=== PATIENT | male | born 1990 | race Caucasian/White ===

== ENCOUNTER 2018-09-29 15:19 | Day surgery (SDC) | payer OTHER ==
[~2018-09-29] VITALS: Ht 172.7 cm; Wt 69.2 kg
[2018-09-29] VITALS (16 sets, daily range): BP systolic 118–144; BP diastolic 67–78; PULSE 62–108; RESP 13–22; Ht 172.7 cm; Wt 69.2 kg
--- NOTE | 2018-09-29 17:06 | HPN ---
Date/Time of Note Date/Time of Note DATE: 09/29/18 TIME: 17:06 Interval H&P Admission Note Pt. seen H&P reviewed: No system changes TY YOUSIF Sep 29, 2018 17:06
[2018-09-29] MEDS ORDERED: BUPIVACAINE 0.25% (MPF) 30 ML INJ ONE (17:21)
[2018-09-29] MEDS ORDERED: MIDAZOLAM 1 MG/ML 2 ML INJ ONE (17:21)
[2018-09-29] MEDS ORDERED: BUPIVACAINE 0.5% (SDV) 30 ML INJ ONE (17:24)
[2018-09-29] MEDS ORDERED: SEVOFLURANE 15 MIN ONE (17:24)
[2018-09-29] MEDS ORDERED: ROCURONIUM 50 MG INJ ONE ×2 (17:24→17:47)
[2018-09-29] MEDS ORDERED: GLYCOPYRROLATE 0.4 MG INJ ONE ×2 (17:24→18:53)
[2018-09-29] MEDS ORDERED: LIDOCAINE 2% (SDV) 5 ML INJ ONE (17:24)
--- NOTE | 2018-09-29 17:28 | PREAC ---
Date/Time of Note Date/Time of Note DATE: 09/29/18 TIME: 17:27 Anesthesia Eval and Record Evaluation Time Pre-Procedure Interview DATE: 09/29/18 TIME: 17:27 Age 28 Sex male NPO: 8 hrs Preoperative diagnosis left radial fracture Planned procedure orif left distal radial fracture Past Medical History Past Medical History: None Surgery & Anesthesia Issues No known issue Meds Anticoagulation: No Beta Nancy within 24 hr: No Reason Beta Nancy not given: Pt. not on B-Nancy Meds reviewed: Yes Allergies Coded Allergies: No Known Allergy (Unverified , 09/29/18) Allergies Reviewed: Yes Labs/Studies Labs Reviewed: Reviewed by anesthesiologist test: N/A Pre-procedure Exam Last vitals Vital Signs Date Temp Pulse Resp B/P (MAP) Pulse Ox O2 O2 Flow FiO2 Time Delivery Rate 09/29/18 98.9 83 16 123/77 100 Room Air 16:39 (92) Airway: Adequate mouth opening, Adequate thyromental dist Mallampati: Mallampati II Teeth: Normal Lung: Normal Heart: Normal ASA Physical Status ASA physical status: 1 Emergency: None Planned Anesthetic General/MAC: LMA Nerve block: Brachial plexus (left) Planned Pain Management Single shot nerve block, Parenteral pain med Pre-operative Attestations Prior to commencing anesthesia and surgery, the patient was re-evaluated, there was verification of: *The patient's identity *The results of appropriate recent lab work and preoperative vital signs *The above evaluation not changing prior to induction *Anesthetic plan, risk benefits, alternative and complications discussed with patient/family; questions answered; patient/family understands, accepts and wishes to proceed. NEVA VENEGAS Sep 29, 2018 17:28
[2018-09-29] MEDS ORDERED: PROPOFOL 20 ML ONE (17:47)
[2018-09-29] MEDS ORDERED: ONDANSETRON 4 MG INJ ONE (18:43)
[2018-09-29] MEDS ORDERED: DEXAMETHASONE 4 MG/ML 5 ML INJ ONE (18:43)
[2018-09-29] MEDS ORDERED: NEOSTIGMINE 10 MG INJ ONE (18:53)
--- NOTE | 2018-09-29 19:06 | OPPN ---
Date/Time of Note Date/Time of Note DATE: 09/29/18 TIME: 19:04 Operative Report Preoperative Diagnosis left distal radius fracture intra-articular, three fragments left carpal tunnel syndrome Postoperative Diagnosis left distal radius fracture intra-articular, three fragments left carpal tunnel syndrome Operation/Procedure Performed left distal radius fracture intra-articular, three fragments ORIF left carpal tunnel release Surgeon see signature line assistant product manager none Anesthesia: general Estimated blood loss: 0 - 10 ml's Transfusion Required none Specimen none Grafts/Implants none Complications none TY YOUSIF Sep 29, 2018 19:06
--- NOTE | 2018-09-29 19:08 | PAC ---
Date/Time of Note Date/Time of Note DATE: 09/29/18 TIME: 19:07 Post-Anesthesia Notes Post-Anesthesia Note Last documented vital signs Vital Signs Date Temp Pulse Resp B/P (MAP) Pulse Ox O2 O2 Flow FiO2 Time Delivery Rate 09/29/18 98.9 83 16 123/77 100 Room Air 1907 (92) Activity: WNL Respiratory function: WNL Cardiovascular function: WNL Mental status: Baseline Pain reasonably controlled: Yes Hydration appropriate: Yes Nausea/Vomiting absent: Yes NEVA VENEGAS Sep 29, 2018 19:07
[2018-09-29] MEDS ORDERED: KETOROLAC 30 MG INJ IV PRN (19:30)
[2018-09-29] MEDS ORDERED: ONDANSETRON 4 MG INJ IV PRN (19:30)
[2018-09-29] MEDS ORDERED: OXYCODONE/ACETAMINOPHEN (5/325) TAB PO PRN ×2 (19:30)
[2018-09-29] MEDS ORDERED: FENTAnyl 50 MCG/ML VIAL IV PRN ×3 (19:30)
[2018-09-29] MEDS ORDERED: MIDAZOLAM 1 MG/ML 2 ML INJ IV PRN (19:30)
[2018-09-29] MEDS ORDERED: LABETALOL HCL 20MG INJ IV PRN (19:30)
[2018-09-29] MEDS ORDERED: METOCLOPRAMIDE 10 MG INJ IV PRN (19:30)
[2018-09-29] MEDS ORDERED: hydrALAzine 20 MG INJ IV PRN (19:30)
[2018-09-29] MEDS ORDERED: HYDROmorphONE 1 MG/5 ML IV SYRINGE IV PRN ×3 (19:30)
[2018-09-29] MEDS ORDERED: ALBUTEROL 0.083% (NEB) 2.5 MG/3 ML AMP HHN PRN (19:30)
[2018-09-29] MEDS ORDERED: DIPHENHYDRAMINE 50 MG INJ IV PRN (19:30)
[2018-09-29] MEDS ORDERED: MEPERIDINE 25 MG INJ IV PRN (19:30)
[2018-09-29] MEDS ORDERED: EPHEDrine SULFATE 50 MG/5 ML SYG IV PRN (19:30)
--- NOTE | 2018-09-29 19:40 | OPR ---
DATE OF OPERATION: 09/29/2018 SURGEON: Hernandez Davies MD ANESTHESIA: Peripheral nerve block plus general. PREOPERATIVE DIAGNOSES: 1. Left distal radius fracture, intraarticular, 3 or more fragments. 2. Left carpal tunnel syndrome. POSTOPERATIVE DIAGNOSES: 1. Left distal radius fracture, intraarticular, 3 or more fragments. 2. Left carpal tunnel syndrome. PROCEDURE: 1. Open reduction internal fixation, left distal radius fracture, intraarticular, 3 or more fragment s. 2. Left carpal tunnel release, open. OPERATIVE FINDINGS: A displaced fracture malunion left distal radius with intra-articular extension with swelling of the carpal canal. There was swelling at the carpal canal. INDICATION FOR PROCEDURE: This is a 28-year-old male with injury to left wrist who was seen in [facility] and diagnosed with a displaced distal radius fracture. Discussed the options and the patient elect ed to proceed with surgical intervention, understanding risks and benefits. DESCRIPTION OF PROCEDURE: The patient was seen in the preoperative area. All further questions were answered. Again, he gave informed consent understanding risks and benefits. In the preoperative patterson ite, a peripheral nerve block was performed by the anesthesia team. He was brought to the operative suite and placed in supine position. He was placed under general anesthesia, and tourniquet placed i n left upper extremity. Left lower extremity was prepped with ChloraPrep stick and draped in usual s terile fashion. Ancef 2 grams IV was given in left lower extremity. The Esmarch was used to exsangu inate the left upper extremity. Tourniquet inflated to 250 mmHg. Attention was first turned to the distal radius and a modified volar Nate approach to the distal radius was utilized with sharp dissec tion carried down through skin and subcutaneous tissue. The FCR sheath was incised and the FCR tendo n, retracted ulnarly. The FCR subsheath incised. The FPL tendon retracted ulnarly. The pronator qu adratus was elevated off the volar distal radius and the fracture site was identified. There was ear ly callus formation. There was significant effort required to free up the fracture fragments. The f racture was reduced into a more anatomic position and a [employer] volar distal radius plate was placed at the volar aspect of the distal radius and fracture. Two cortical screws were placed proximally a nd locking screws were placed distally. X-ray imaging showed appropriate hardware placement and bony alignment. An additional locking screw was placed proximally. The wound was copiously irrigated an d skin closed with 4-0 nylon. Attention turned to the carpal tunnel and 2 cm incision was made at th e base of the palm with sharp dissection carried down through skin and subcutaneous tissue. The palm ar aponeurosis was incised along its ulnar border and retracted even. The transverse carpal ligament was divided along its ulnar border approximately 3 mm radial to the hook of the hamate. Retraction placed proximally and distally and proximal and distal to the transverse carpal ligament were divided under direct visualization. Wound was copiously irrigated and skin closed with 4-0 nylon. Xeroform placed over the wounds followed by sterile gauze, Webril, and a short arm splint. Tourniquet deflat ed after 36 minutes. The patient was awakened from anesthesia. He was taken to postoperative suite in stable condition and tolerated the procedure well without complication. SPECIMENS: None. ESTIMATED BLOOD LOSS: 5 mL. COUNTS: Sponge, instrument, needle counts correct. TOURNIQUET TIME: 36 minutes. CONDITION ON DISCHARGE: Stable. The patient was given a nonrefillable 5-day prescription for pain medication for surgery today. Dictated By: HERNANDEZ GALAN/CHRISTINE Conf#: [id number] DID#: [id number]
== END 2018-09-29 20:20 | disposition home or self-care (01) ==
LOC: SDS 15:19 → EDSEX 16:30 → SDS 20:20
PROVIDERS: ATTEND Orthopaedic Surgery Hand Surgery
DX: S52.572D Other intraarticular fracture of lower end of left radius, subsequent encounter for closed fracture with routine healing (principal); X58.XXXD Exposure to other specified factors, subsequent encounter; G56.02 Carpal tunnel syndrome, left upper limb
CPT/HCPCS: 25609; 64721; 73110; C1713; J1100; J1885; J2175; J2250; J2405; J2710; J3010